=== PATIENT | female | born 1975 | race Two or more races ===

== ENCOUNTER 2018-07-11 12:00 | Inpatient (IN) | payer OTHER ==
[~2018-07-11] VITALS: Ht 167.6 cm; Wt 79.4 kg
[2018-07-20] MEDS ORDERED: ONDANSETRON ODT4 MG PO (09:40)
[2018-07-20] MEDS ORDERED: OXYC1TAB9 PO (09:40)
== END 2018-07-20 12:25 | DRG 743 ==
LOC: O/R 07-18 06:02 → OB/GYN 07-18 08:30
PROVIDERS: Obstetrics & Gynecology
PROC: 0UT20ZZ Resection of Bilateral Ovaries, Open Approach (ICD-10-PCS; 2018-07-18)
PROC: 0UT70ZZ Resection of Bilateral Fallopian Tubes, Open Approach (ICD-10-PCS; 2018-07-18)
PROC: 0UT90ZZ Resection of Uterus, Open Approach (ICD-10-PCS; principal; 2018-07-18 08:30)
DX: D25.1 Intramural leiomyoma of uterus (principal); N83.12 Corpus luteum cyst of left ovary; N83.11 Corpus luteum cyst of right ovary; N93.8 Other specified abnormal uterine and vaginal bleeding